=== PATIENT | female | born 1970 | race Two or more races ===

== ENCOUNTER 2020-02-10 10:22 | Emergency (ER) | payer OTHER ==
[~2020-02-10] VITALS: Ht 152.4 cm; Wt 74.4 kg
--- NOTE | 2020-02-10 10:30 | NUR ---
PT BIB [facility] FOR SUBSTERNAL CP WORSE WITH PALPATION THAT BEGAN WHILE PT WAS SLEEPING AFTER WORKING A [employer] IN WAREHOUSE. PT REPORTS PAIN RADIATES TO BACK. PT DENIES SOB. PT ON MONITOR AND FRIEND AT BEDSIDE. WAITING FOR ORDERS.
--- NOTE | 2020-02-10 10:59 | NUR ---
RECEIVED REPORT FROM JOCELYN MENDIOLA. ASSUMING CARE AT THIS TIME.
[2020-02-10 11:04] LABS: BASOPHILS # (AUTO) 0.04 x10^3/uL (0-0.1); BASOPHILS % (AUTO) 1 % (0-1); EOSINOPHILS # (AUTO) 0.24 x10^3/uL (0-0.4); EOSINOPHILS % (AUTO) 3 % (1-7); LYMPHOCYTES # (AUTO) 1.81 x10^3/uL (1-3.4); LYMPHOCYTES % (AUTO) 20 % (22-44); MD NO; MEAN CORPUSCULAR HGB CONC 33.5 g/dL (32.4-35.8); MEAN CORPUSCULAR VOLUME 92.6 fL (80-100); MEAN PLATELET VOLUME 8.1 fL (7.4-10.4); MONOCYTES # (AUTO) 0.51 x10^3/uL (0.2-0.8); MONOCYTES % (AUTO) 6 % (2-9); NEUTROPHILS # (AUTO) 6.55 x10^3/uL (1.8-6.8); NEUTROPHILS % (AUTO) 72 % (42-75); PLATELET COUNT 265 x10^3/uL (130-400); RED BLOOD COUNT 4.41 x10^6/uL (3.82-5.3); RED CELL DISTRIBUTION WIDTH 12.8 % (9.6-15.2)
[2020-02-10 11:09] LABS: ALANINE AMINOTRANSFERASE 24 U/L (12-78); ALBUMIN 3.7 g/dL (3.4-5.0); ANION GAP 6 mmol/L (5-15); CALCIUM 8.7 mg/dL (8.5-10.1); CHLORIDE 110 mmol/L (98-107); CREATININE 0.66 mg/dL (0.55-1.02)
[2020-02-10 11:13] LABS: ALKALINE PHOSPHATASE 85 U/L (45-117); BILIRUBIN,TOTAL 0.2 mg/dL (0.2-1.0); TOTAL PROTEIN 7.5 g/dL (6.4-8.2); TROPONIN I < 0.015 ng/mL (0.000-0.045)
--- NOTE | 2020-02-10 11:31 | NUR ---
ALL RESULTS ARE BACK AT THIS TIME. CHART UP FOR RECHECK.
--- NOTE | 2020-02-10 11:56 | NUR ---
NEW ORDER TO RECHECK TROP @2214
[2020-02-10 12:45] VITALS: BP 162/83
[2020-02-10 14:15] LABS: TROPONIN I < 0.015 ng/mL (0.000-0.045)
== END 2020-02-10 14:40 | disposition home or self-care (01) ==
LOC: ED 11:25
DX: R07.89 Other chest pain (principal); R06.02 Shortness of breath; R11.0 Nausea; R91.8 Other nonspecific abnormal finding of lung field
CPT/HCPCS: 36415; 71045; 80053; 83690; 84484; 85025; 93005; 99285